=== PATIENT | male | born 1970 | race Caucasian/White ===

== ENCOUNTER 2022-08-05 12:04 | Emergency (ER) | payer MEDICAID, SELFPAY ==
[2022-08-05 12:29] VITALS: BP 133/88; PULSE 72; RESP 14; TEMP 36.5; O2SAT 97
--- NOTE | 2022-08-05 13:23 | ED_ITS ---
HPI - Back Pain/Injury General: Chief Complaint: Back Pain/Injury Stated Complaint: back pain Time Seen by Provider: 08/05/22 12:35 Source: patient Mode of arrival: ambulatory Limitations: no limitations History of Present Illness: Patient is a 52-year-old male who presents to ED today with complaint of lower back pain. Patient states he intermittently has chronic lower back pain secondary to bulging disks . He states yesterday he was in the yard when he stepped in a pothole and merry/compressed his back. He is not having any radicular symptoms to his lower extremity at this time. Pain is localized to his lower lumbar region. MD elicited complaint: back pain and back injury Pertinent past history: prior back pain Onset (ago): day(s) (yesterday) Timing: constant Severity: severe Similar Symptoms Previously: Yes Location: lumbar spine Radiation: none Exacerbating factors: movement, sitting upright and walking Relieving factors: none Associated symptoms: Reports no associated symptoms; Deny abdominal pain, chills, dysuria, fatigue or fever(s) Work related injury: No Review of Systems Const: Denies: fever(s), chills, body aches, fatigue or malaise Card: Denies: chest pain Resp: Denies: dyspnea GI: Denies: abdominal pain : Denies: flank pain or dysuria Musc: Reports: back pain; Denies: neck pain, extremity pain or joint pain Skin/Breast: Denies: rash Neuro: Denies: headache(s), numbness in extremities, weakness in extremities or sensory changes Physical Exam Const: COMMON NORMALS: no acute distress, patient oriented x3, no limitations and alert GENERAL APPEARANCE: cooperative : COMMON NORMALS: Yes no CVA tenderness BLADDER/KIDNEY EXAM: Yes no CVA tenderness Back/Pelvis: COMMON NORMALS: no CVA tenderness THORACIC SPINE/UPPER BACK: Yes normal to inspection, No thoracic spinal tenderness and No paraspinal muscle tenderness LUMBAR SPINE/LOWER BACK: Yes normal to inspection, Yes ROM limited, Yes pain with ROM, Yes lumbar spinal tenderness Lumbar spinal tenderness location: L3, L4 and L5, No paraspinal muscle tenderness and Yes straight leg raise negative bilaterally PELVIS: Yes buttocks normal SACROILIAC JOINTS: Yes SI joints normal SACRUM: no tenderness COCCYX: no tenderness Extremity: COMMON NORMALS: normal to inspection and full ROM GENERAL: Yes normal exam except as noted Neuro: COMMON NORMALS: patient oriented x3, moves all extremities, no focal motor deficits, no sensory deficits noted and gait normal SENSORIUM/ORIENTATION: Yes alert Skin: COMMON NORMALS: no rashes or lesions noted GENERAL SKIN EXAM: no rashes or lesions noted Course Vital Signs: Vital signs: Vital Signs Temperature 97.7 F 08/05/22 12:29 Pulse Rate 72 08/05/22 12:29 Respiratory Rate 14 08/05/22 12:29 Blood Pressure 133/88 08/05/22 12:29 Pulse Oximetry 97 08/05/22 12:29 Oxygen Delivery Me thod 08/05/22 12:29 MDM - Back Pain/Injury Medical Decision Making Patient with no acute neurologic concerns/deficits on history or physical exam. XR of lumbar spine is negative. Recommend follow-up with his primary care prov ider in 1 week if symptoms do not seem to be improving. Labs Radiology Impressions Lumbar Spine X-Ray 08/05/22 13:28 IMPRESSION: 1. No fracture or malalignment. 2. Degenerative changes and slight scoliosis. Discharge Plan Discharge Patient Disposition: Home Clinical Impression: Acute lumbar back pain Qualifiers: Back pain laterality: midline Sciatica presence: without sciatica Qualified Code(s): M54.50 - Low back pain, unspecified Condition: Stable Prescriptions: New ibuprofen 800 mg tablet 800 mg PO Q8H PRN (Reason: pain) Qty: 20 0RF methylprednisolone [Medrol (Sam)] 4 mg tablets,dose pack See Rx Instructions .ROUTE .COMPLEX Qty: 21 0RF Rx Instructions: orally per package directions Discharge Orders: Discharge ED (Routine); Ordered 08/05/22 Ordered By: Donna Oh Coding Level of Care Code ED Surveillance Dual Rate Officer for [facility] Emily
--- NOTE | 2022-08-05 13:28 | XR_ITS ---
WS: [id number] Exam: XR lumbar spine 2-3V* [id number] Date/Time of Exam: 08/05/2022 1:33 PM Reason For Exam: back pain/injury No fracture or dislocation noted. Degenerative vacuum disc at L5-S1. Mild spondylosis. Slight levosco liosis. DJD of the SI joints. Posterior elements are intact. XR/XR lumbar spine 2-3V* [id number] IMPRESSION: 1. No fracture or malalignment. 2. Degenerative changes and slight scoliosis.
--- NOTE | 2022-08-05 14:33 | PC.NURSE ---
PT REFUSED VS. UPON LEAVING PT STATES, I CAN'T BELIEVE I WASTED 2 HOURS .
== END 2022-08-05 14:54 | disposition home or self-care (01) ==
PROVIDERS: Emergency Provider Physician Assistant
DX: M54.50 Low back pain, unspecified (principal)
CPT/HCPCS: 72100; 99283

== ENCOUNTER 2023-03-19 12:56 | Outpatient (CLI) | payer OTHER, MEDICAID, SELFPAY ==
--- NOTE | 2023-03-19 | US_ITS ---
WS: [id number] TESTICULAR ULTRASOUND HISTORY: TESTICULAR PAIN, RIGHT TESTICULAR PAIN, LEFT COMPARISON: None available. TECHNIQUE: Real-time and color Doppler imaging or utilized to perform a testicular ultrasound. Right testicle: 4.1 cm x 2.5 cm x 2.3 cm. Normal size and echogenicity. No mass or torsion. Normal color Doppler is present throughout. Systolic and diastolic velocities are both present. No significant hydrocele. Right epididymis: Epididymis is markedly enlarged and there is a spermatocele. Spermatocele contains low-level echoes throughout and measures 1.0 x 1.0 x 1.5 cm. No increased vascularity. Left testicle: 3.9 cm x 2.7 cm x 2.3 cm. Normal size and echogenicity. No mass or torsion. Normal color Doppler is present throughout. Systolic and diastolic velocities are both present. No significant hydrocele. Left epididymis: Normal sized epididymis. There are several small spermatoceles with the largest hiwot uring 0.8 x 0.6 x 0.5 cm. No increased vascularity. US/US scrotum [id number] IMPRESSION: 1. No testicular mass or torsion. 2. No orchitis. 3. Bilateral spermatoceles. 4. RIGHT epididymis is significantly enlarged with mixed echogenicity but no i ncreased vascularity to suggest acute epididymitis.
--- NOTE | 2023-03-19 13:07 | CT_ITS ---
WS: [id number] LDCT LUNG CANCER SCREENING HISTORY: NICOTINE DEPENDENCE TECHNIQUE: Axial imaging performed from the apices to 1 cm below the costophrenic angles. Coronal and sagittal reformats are submitted with axial MIP series. All CT scans at [facility] use at least one of these dose optimization techniques: automated exposure control; mA and/or kV adjustment per patient size (includes targeted exams where dose is matched to clinical indication); or iterativ e reconstruction. DLP: 77.22 mGy.cm DIvol: Mean CTDIvol: 1.70 (mGy) COMPARISON: None. Diagnostic quality: Mild motion artifact Lungs: Hazy attenuation likely related to smoking history. Both lungs. No groundglass attenuation. Le ss than 3 mm nodule RIGHT upper lobe. No mass or pneumonia. Small amount of mucus within the trachea. No obstructing endobronchial lesions. Heart: Normal size heart with no pericardial effusion.. Other findings: Normal aorta and pulmonary artery. No adenopathy. No adrenal mass. Gallbladder is con tracted. CT/CT lung screening [id number] IMPRESSION: LUNG-RADS: 2-Benign Appearance or Behavior FOLLOW UP: 12 Month: Continue annual screening with LDCT OTHER FINDINGS (S MODIFIER): None.
--- NOTE | 2023-03-19 13:25 | XRR_ITS ---
PROCEDURE INFORMATION: Exam: XR Left Shoulder Exam date and time: 03/19/2023 1:30 PM Age: 52 years old Clinical indication: Pain; Shoulder; Left; Additional info: Shoulder joint pain, left TECHNIQUE: Imaging protocol: Radiologic exam of the left shoulder. Views: 2 or more views. COMPARISON: CT lung screening [id number] 03/19/2023 1:22 PM FINDINGS: Bones/joints: No acute findings. Joint spaces are normal. There is an old left 5th rib fracture.. Soft tissues: Normal. XR/XR shoulder LT min 2V* [id number] IMPRESSION: No acute findings.
== END 2023-03-19 12:57 | disposition home or self-care (01) ==
LOC: RAD 12:57
PROVIDERS: PCP Nurse Practitioner Family; Visit Provider Nurse Practitioner Family
DX: Z12.2 Encounter for screening for malignant neoplasm of respiratory organs (principal); F17.200 Nicotine dependence, unspecified, uncomplicated; M25.512 Pain in left shoulder; N50.811 Right testicular pain; N50.812 Left testicular pain; N50.89 Other specified disorders of the male genital organs; N43.42 Spermatocele of epididymis, multiple
CPT/HCPCS: 71271; 73030; 76870

== ENCOUNTER 2023-04-15 16:09 | Outpatient (CLI) | payer OTHER, MEDICAID, SELFPAY ==
--- NOTE | 2023-04-15 | MR_ITS ---
WS: [id number] MRI LEFT SHOULDER NONCONTRAST TECHNIQUE: Sagittal T2, coronal T1, T2 and proton density imaging. Axial gradient PDE imaging. CLINICAL INFORMATION: LEFT SHOULDER PAIN COMPARISON: Radiograph 03/19/2023 FINDINGS: Moderate degenerative arthritis AC joint with mild downsloping acromion. This is somewhat advanced fo r patient this age. Slight subacromial spurring with slight impingement on the distal supraspinatus. Fluid in the AC joint. No significant subacromial or subdeltoid fluid. Normal supraspinatus and infraspinatus. Normal teres minor. Small fluid signal partial intrasubstance tear involving the distal subscapularis just proximal to the bicipital groove. Normal biceps tendon within the bicipital groove. Normal rotator interval. Intra-articular biceps tendon appears intact. G lenoid labrum appears grossly intact. Biceps labral anchor appears intact. No significant joint effusion. Normal bone marrow signal in the glenoid and humerus. No evidence of f racture or dislocation. IMPRESSION: 1. Moderate degenerative arthritis AC joint with fluid and edema somewhat advanced for patient this age. Mild downsloping acromion with slight subacromial spurring. 2. Small fluid signal intrasubstance tear involving the distal subscapularis just proximal to the bi cipital groove. No tendon retraction. Rotator cuff is otherwise intact. 3. Biceps tendon intact within the bicipital groove. 4. No significant joint effusion. 5. No other suspicious findings.
== END 2023-04-15 16:10 | disposition home or self-care (01) ==
LOC: RAD 16:11
PROVIDERS: PCP Nurse Practitioner Family; Visit Provider Nurse Practitioner Family
DX: M25.512 Pain in left shoulder (principal); M19.012 Primary osteoarthritis, left shoulder
CPT/HCPCS: 73221

== ENCOUNTER → 2023-10-31 11:35 | Outpatient (BNVA) | payer OTHER, MEDICAID, SELFPAY | PROVIDERS: PCP Nurse Practitioner Family; Visit Provider Nurse Practitioner Family | DX: M54.50 Low back pain, unspecified (principal) | CPT/HCPCS: 72120 ==

== ENCOUNTER → 2024-01-16 11:33 | Outpatient (BNVA) | payer OTHER, MEDICAID, SELFPAY | PROVIDERS: PCP Nurse Practitioner Family; Referring Provider Nurse Practitioner Family; Visit Provider Physician Assistant | DX: M25.511 Pain in right shoulder (principal); M75.42 Impingement syndrome of left shoulder; M19.011 Primary osteoarthritis, right shoulder; M75.41 Impingement syndrome of right shoulder; M19.012 Primary osteoarthritis, left shoulder | CPT/HCPCS: 73030 ==

== ENCOUNTER 2024-06-27 13:57 | Emergency (ER) | payer MEDICAID, SELFPAY ==
[2024-06-27 14:02] VITALS: BP 146/97; PULSE 90; RESP 18; TEMP 36.7; O2SAT 95; BMI 26.4
--- NOTE | 2024-06-27 14:36 | PC.NURSE ---
I went in to assess the patient, patient told me I'm not going to tell this story more than once, so you better get the doctor . I told the patient that is fine, I will leave and return when the physician is ready to see him.
--- NOTE | 2024-06-27 14:41 | PC.NURSE ---
I accompanied Dr. Helton into the room to assess the patient and his wounds. Dr. Helton assessed the patient's left hand and it looked to be just blood covered and no wounds. Patient states that the wound is on his left wrist, forearm area. Patient has coban (applied by his ) on his left wrist. Patient asked that we cut off the coban. Dr. Helton asked me to unwrap the coban from the patient's arm. Patient got very upset and was cursing then stated I'm going to punch you in the face . Dr. Helton told the patient that he did not have to receive treatment from us and that he could leave because it was unacceptable for the patient to threaten anyone. Patient then stated that he has First Amendment rights and that he is allowed to curse. Dr. Helton said what does First Amendment rights have to do with us treating your injury? Dr. Helton stated he will not let the patient threaten to harm anyone. Patient stated I asked you to cut off the bandage, you won't listen to me, I'm in pain . Dr. Helton asked the patient if he wanted him to look at his chest wound or did he want to leave. The patient stated that he would stay. Dr. Helton then proceeded to assess his chest wound.
--- NOTE | 2024-06-27 14:42 | PC.NURSE ---
NURSE EXITS THE ROOM UPON PATIENTS ARRIVAL AND STATES THAT HE TOLD ME THAT HE WAS ONLY GOING TO TELL HIS STORY ONE TIME, SO IF I WASN'T THE PHYSICIAN, I NEEDED TO GET OUT. CHARGE NURSE ENTERS INTO PATIENT ROOM AND EDUCATES THE PATIENT ON TRIAGE ASSESSMENT VS NURSE ASSESSMENT VS PHYSICIAN ASSESSMENT. NURSE EDUCATES PATIENT THAT HE MAY HAVE TO TELL WHAT HAPPENED TO MULTIPLE PEOPLE FOR EFFECTIVE AND ACCURATE TREATMENT. PATIENT STATES THAT HE JUST WANTED TO LAY DOWN AND REST BECAUSE I KNOW MY BODY. PATIENT STATES TO NURSE THIS IS FUCKING RIDICULOUS. NURSE EDUCATES PATIENT TO PLEASE ANSWER NURSING QUESTIONS AND PHYSICIAN QUESTIONS WHEN PROMPTED.
--- NOTE | 2024-06-27 15:09 | W.ED.WOUNDLC ---
HPI - Wound/Laceration General: Chief Complaint: Wound/Laceration Stated Complaint: Laceration across chest and wrisk, grinder chipper injury Time Seen by Provider: 06/27/24 14:07 History of Present Illness: This patient is a 54-year-old white male who presents to the emergency department with a laceration to the left forearm and abrasion to the chest. Patient states he was cutting some trees using a circular saw that had a rasp on it. He states it kicked back and struck him in the left forearm and the chest. Patient complains of quite a bit of pain in the left forearm radiating into the fourth and fifth digits of the left hand. Also complains of numbness of those digits. Related Data Previous Rx's Medication Instructions Recorded ibuprofen 800 mg tablet 800 mg PO Q8H PRN pain #20 tabs 08/05/22 Allergies Allergy/AdvReac Type Severity Reaction Status Date / Time No Known Allergies Allergy Verified 06/27/24 14:02 Review of Systems Skin/Breast: Reports: other (Deep laceration left forearm and abrasion to the chest) Physical Exam Const: COMMON NORMALS: patient oriented x3 OTHER: Patient was rude and threatening to myself and the nurse. HENMT: COMMON NORMALS: normocephalic and atraumatic HEAD & SCALP: normal to inspection, normocephalic and atraumatic FACE & SINUS: normal facial exam Eye: COMMON NORMALS: Equal, round and reactive pupils present, EOMs intact bilaterally and conjunctivae normal GENERAL EYE: appearance normal, both eyes and all related structures CONJUNCTIVA: Yes conjunctivae normal PUPIL: Yes Equal, round and reactive pupils present Neck/C-Spine: COMMON NORMALS: supple and no JVD Chest: OTHER: Abrasion to the left chest. Resp: COMMON NORMALS: normal respiratory effort and clear to auscultation bilaterally AUSCULTATION: clear to auscultation bilaterally Cardio: COMMON NORMALS: no JVD, regular rate, regular rhythm, No gallops present (Cardio), No murmurs present (Cardio) and No rub (Cardio) RATE: regular rate RHYTHM: regular rhythm GI: COMMON NORMALS: Normal to inspection, nondistended, normoactive bowel sounds present, Soft to palpation and non-tender AUSCULTATION: Yes normoactive bowel sounds PALPATION: Yes Soft to palpation : COMMON NORMALS: Yes no CVA tenderness BLADDER/KIDNEY EXAM: Yes no CVA tenderness Back/Pelvis: COMMON NORMALS: no CVA tenderness and thoracic and lumbar spine normal to inspection Extremity: OTHER: There is a deep laceration to the anteromedial aspect of the left forearm. Painful range of motion of the fourth and fifth digits of the left hand. Patient complained of numbness of those digits. Neuro: COMMON NORMALS: patient oriented x3 and CN's II-XII intact bilaterally Psych: COMMON NORMALS: mental status grossly normal, Normal thought process present and cooperative THOUGHT PROCESS: Normal thought process present Skin: COMMON NORMALS: no rashes or lesions noted, turgor normal and no jaundice GENERAL SKIN EXAM: no rashes or lesions noted and turgor normal Course Vital Signs: Vital signs: Vital Signs Temperature 98.0 F 06/27/24 14:02 Pulse Rate 90 06/27/24 14:02 Respiratory Rate 18 06/27/24 14:02 Blood Pressure 146/97 06/27/24 14:02 Pulse Oximetry 95 06/27/24 14:02 MDM - Wound/Laceration Medical Decision Making Patient would not allow me to explore the wound. I discussed this case with Dr. Penny, hand surgeon Vaishali Marino. He would like us to transfer the patient to the emergency department he will likely take him to the operating room. Patient is getting Ancef at this time as well as morphine and Zofran. Fawn, nurse will irrigate the wound on the forearm and dress with saline gauze. I will also have her clean the chest wound and apply antibiotic ointment and bandage. Patient will be transferred shortly. He is stable. No radiology studies performed this visit Discharge Plan Discharge Patient Disposition: Transfer to ED Clinical Impression: Laceration Condition: Stable Prescriptions: No Action ibuprofen 800 mg tablet 800 mg PO Q8H PRN (Reason: pain) Qty: 20 0RF Referrals: Latanya Pedro FNP [Primary Care Provider] - Coding Level of Care Code ED Drone Software Development Engineer for Nicola Diaz
[2024-06-27 15:14] VITALS: RESP 17; O2SAT 98
[2024-06-27] MEDS: ceFAZolin 2,000 mg SDV 2000 MG IVP (15:14)
[2024-06-27] MEDS: ondansetron 2 mg/ML SDV 2 mL 4 MG IVP (15:14)
[2024-06-27] MEDS: morphine 4 mg/mL SDV 1 mL IVP (15:14)
[2024-06-27 16:47] VITALS: BP 131/93; PULSE 72; O2SAT 97
== END 2024-06-27 16:49 ==
PROVIDERS: Emergency Provider Emergency Medicine; PCP Nurse Practitioner Family
DX: S51.812A Laceration without foreign body of left forearm, initial encounter (principal); X58.XXXA Exposure to other specified factors, initial encounter
CPT/HCPCS: 96374; 96375; 99284; J0690; J2270; J2405